=== PATIENT | male | born 1970 | race Caucasian/White ===

== ENCOUNTER 2017-12-27 20:09 | Emergency (ER) | payer BC, OTHER ==
[~2017-12-27] VITALS: Ht 188 cm; Wt 121.4 kg
[~2017-12-27 20:09] MED LIST: IBUP-1459
[2017-12-27 20:13] VITALS: TEMP 36.6; Ht 188 cm; Wt 121.4 kg
[2017-12-27] MEDS ORDERED: PROPARACAINE HCL 0.5% OP SOLN 15 ML BTL OP STA (20:46)
[2017-12-27] MEDS ORDERED: CIPROFLOXACIN HCL 0.3% OP SOLN 2.5 ML BTL OP ONE (21:30)
[2017-12-27] MEDS ORDERED: DIPHTHERIA/TETANUS/PERTUSSIS 0.5 ML SYR/VIAL IM. ONE (21:30)
[2017-12-27] MEDS ORDERED: NORCO 5/325MG HOME PACK PO ONE (22:00)
--- NOTE | 2017-12-27 22:06 | EMERGENCY ROOM VISIT NOTE ---
ED Visit Note First contact with patient: 20:39 CHIEF COMPLAINT: Foreign body of the eye HISTORY OF PRESENT ILLNESS: This 47-year-old male patient presents to the emergency department complaining of pain and foreign body sensation in the right eye. The patient was playing around in his garage when he thinks that he got something in his eye. There has been a constant moderate pain and irritation, redness and tearing in the eye. The vision has not been decreased over all. The patient does not wear contacts. The patient rates the pain as 7/ 10. The patient has not had previous injuries to this eye. Tetanus shot is not up to date. REVIEW OF SYSTEMS: A 6 system review of systems was completed with positives and pertinent negatives listed in the HPI. ALLERGIES: No known drug allergies MEDICATIONS: Personally reviewed PMH: Hypertension SOCIAL HISTORY: He does not smoke, occasional EtOH use PHYSICAL EXAM: Vital Signs: Reviewed Nurse's notes, vital signs stable. Visual acuity reviewed. Please see nurse's notes.. GENERAL: This is a 47-year-old male, in no acute distress, but who is uncomfortable from the eye problem. Well -developed well-nourished. EYES: The pupils are equal round and reactive to light and accommodation. EOMs are full and without tenderness. There is clear discharge from the right eye which is injected. There is a 2 mm, punctate foreign body visible on the cornea. There is no foreign body visible under the eyelid after lid eversion. . The cornea was clear and no hyphema was seen. Fluorescein uptake was observed with ultraviolet light significant for a corneal abrasion only around the previous location of the foreign body. EMERGENCY DEPARTMENT COURSE: I examined the patient. Alcaine 2 drops were placed in the patient's right eye. A slit lamp exam was performed as above. Verbal consent was obtained to perform the procedure. The punctate foreign body was removed using a tuberculin syringe. Ciloxan two drops was placed in the patient's right eye. The patient was given a home pack of [place]. He was also given an Adacel injection. The patient was discharged home in good condition. DIAGNOSIS: Foreign body with subsequent corneal abrasion of the right eye DISCHARGE INSTRUCTIONS AND TREATMENT: Use Ciloxin two drops in right eye every two hours while awake for two days; then two drops every four hours while awake for three days. Use Ibuprofen 600 mg every 6 hrs as needed for moderate pain. Use norcon 1-2 tablets every four to six hours when pain breaks through the Ibuprofen Return to the ED or see your eye doctor in 24-48 hours for a recheck. A number has been provided Return to the ED for increasing pain or changes in vision. This chart was completed in part utilizing [employer] Speech Voice Recognition software. Attempts were made to minimize the grammatical errors, random word insertions, pronoun errors and incomplete sentences. Any formal questions or concerns about the content, text or information contained within the body of this dictation should be directly addressed to the provider for clarification.
[2017-12-27] MEDS ORDERED: HYDR-5688 PO (22:07)
[2017-12-27 22:11] VITALS: BP 140/87; PULSE 81; O2SAT 97
== END 2017-12-27 22:12 | disposition home or self-care (01) ==
LOC: C.EDB 20:10 → C.EDD 22:12
DX: T15.01XA Foreign body in cornea, right eye, initial encounter (principal); S05.01XA Injury of conjunctiva and corneal abrasion without foreign body, right eye, initial encounter; X58.XXXA Exposure to other specified factors, initial encounter; I10 Essential (primary) hypertension; Z23 Encounter for immunization